=== PATIENT | female | born 1945 | race Caucasian/White ===

== ENCOUNTER → 2016-12-01 | Outpatient (CLI) | payer MEDICARE, OTHER ==
[2016-07-01 18:46] VITALS: BP 159/97
[~2016-12-01] MED LIST: CALCIUM500 M1 PO; CIPRO500 M1 PO; FLEXERIL 1010 MG/TAB PO; FOSAMAX 70MG TA70 MG PO; GLUCOSAMIN-CHO1 EACH PO; HCTZ 25MG25 MG PO; KLOR-CON 1010 MEQ PO; LISINOPRIL20 MG PO; METOPROLOL SUCC50 M1 PO; PHARMASSURE FIS1 SGL PO; TRIAMTERENE AND1 TAB PO
== END ==
LOC: LAB 09:18
DX: D50.9 Iron deficiency anemia, unspecified (principal)

== ENCOUNTER → 2016-12-04 | Outpatient (CLI) | payer MEDICARE, OTHER ==
[2016-07-01 18:46] VITALS: BP 159/97
== END ==
LOC: LAB 13:19
DX: D50.9 Iron deficiency anemia, unspecified (principal)

== ENCOUNTER → 2016-12-05 | Outpatient (CLI) | payer MEDICARE, OTHER ==
[2016-07-01 18:46] VITALS: BP 159/97
== END ==
LOC: LAB 13:10
DX: D50.9 Iron deficiency anemia, unspecified (principal)

== ENCOUNTER → 2016-12-30 | Outpatient (CLI) | payer MEDICARE, OTHER ==
[2016-07-01 18:46] VITALS: BP 159/97
== END ==
LOC: LAB 14:34
DX: D50.8 Other iron deficiency anemias (principal); R53.81 Other malaise

== ENCOUNTER → 2017-01-05 | Outpatient (CLI) | payer MEDICARE, OTHER ==
[2016-07-01 18:46] VITALS: BP 159/97
== END ==
LOC: VAS 17:24
DX: R01.1 Cardiac murmur, unspecified (principal); I34.0 Nonrheumatic mitral (valve) insufficiency

== ENCOUNTER → 2017-05-29 | Outpatient (CLI) | payer MEDICARE, OTHER ==
[2016-07-01 18:46] VITALS: BP 159/97
== END ==
LOC: LAB 09:47
DX: C50.919 Malignant neoplasm of unspecified site of unspecified female breast (principal)

== ENCOUNTER → 2018-01-04 | Outpatient (CLI) | payer MEDICARE, OTHER ==
[2016-07-01 18:46] VITALS: BP 159/97
[2018-01-04 09:05] LABS: HEMATOCRIT 39.3 % (37.0-47.0); MEAN CELL VOLUME 85 fl (78-100); MEAN CORPUSCULAR HEMOGLOBIN 26 pg (27-31); MEAN CORPUSCULAR HGB CONC 31 g/dL (33-37); MEAN PLATELET VOLUME 10.3 fl (7.4-10.4); PLATELET COUNT 246 K/mm3 (130-400); RED CELL DISTRIBUTION WIDTH 14.9 % (11.5-14.5); WHITE BLOOD COUNT 7.7 K/mm3 (4.8-10.8)
[2018-01-04 09:52] LABS: LYMPHOCYTE 8 % (20-51); MONOCYTE 9 % (3-10); NEUTROPHILS 77 % (42-75)
== END ==
LOC: LAB 08:31
PROVIDERS: Nurse Practitioner Family
DX: Z00.00 Encounter for general adult medical examination without abnormal findings (principal); E78.2 Mixed hyperlipidemia; I10 Essential (primary) hypertension; D64.9 Anemia, unspecified; D05.10 Intraductal carcinoma in situ of unspecified breast

== ENCOUNTER → 2018-02-09 | Outpatient (CLI) | payer MEDICARE, OTHER ==
[2016-07-01 18:46] VITALS: BP 159/97
== END ==
LOC: LAB 10:30
DX: N39.0 Urinary tract infection, site not specified (principal)

== ENCOUNTER → 2018-04-28 | Outpatient (CLI) | payer MEDICARE, OTHER ==
[2016-07-01 18:46] VITALS: BP 159/97
[2018-04-28 17:30] LABS: URINE APPEARANCE HAZY; URINE BILIRUBIN NEGATIVE (NEGATIVE); URINE BLOOD NEGATIVE (NEGATIVE); URINE COLOR YELLOW; URINE GLUCOSE NEGATIVE (NEGATIVE); URINE KETONE NEGATIVE (NEGATIVE); URINE NITRATE NEGATIVE (NEGATIVE); URINE PROTEIN(semi-quant) NEGATIVE (NEGATIVE); URINE UROBILINOGEN NORMAL (NORMAL)
[2018-04-28 17:31] LABS: URINE LEUKOCYTE ESTERASE 1+ (NEGATIVE)
== END ==
LOC: LAB 14:56
PROVIDERS: Family Medicine
DX: R19.7 Diarrhea, unspecified (principal)

== ENCOUNTER → 2018-05-13 | Outpatient (CLI) | payer MEDICARE, OTHER ==
[2016-07-01 18:46] VITALS: BP 159/97
[2018-05-13 14:46] LABS: HEMATOCRIT 38.9 % (37.0-47.0); HEMOGLOBIN 12.4 g/dL (12.5-16.0); MEAN CELL VOLUME 86 fl (78-100); MEAN CORPUSCULAR HEMOGLOBIN 28 pg (27-31); MEAN CORPUSCULAR HGB CONC 32 g/dL (33-37); MEAN PLATELET VOLUME 10.1 fl (7.4-10.4); PLATELET COUNT 256 K/mm3 (130-400); RED BLOOD COUNT 4.51 M/mm3 (4.10-5.30); RED CELL DISTRIBUTION WIDTH 14.5 % (11.5-14.5); WHITE BLOOD COUNT 8.9 K/mm3 (4.8-10.8)
[2018-05-13 15:08] LABS: ALBUMIN 3.7 g/dL (3.5-5.0); POTASSIUM 3.7 mmol/L (3.6-5.0); TOTAL BILIRUBIN 0.3 mg/dL (0.2-1.3); TOTAL PROTEIN 6.6 g/dL (6.3-8.2)
[2018-05-13 15:33] LABS: LYMPHOCYTE 15 % (20-51); MONOCYTE 9 % (3-10); NEUTROPHILS 74 % (42-75)
[2018-05-13 15:34] LABS: POLYCHROMASIA 1+
== END ==
LOC: RAD 14:25
PROVIDERS: Nurse Practitioner Family
DX: R19.7 Diarrhea, unspecified (principal)

== ENCOUNTER → 2019-01-12 | Outpatient (CLI) | payer MEDICARE, OTHER ==
[2016-07-01 18:46] VITALS: BP 159/97
[2019-01-12 12:06] LABS: HEMATOCRIT 42.4 % (37.0-47.0); HEMOGLOBIN 12.8 g/dL (12.5-16.0); MEAN CELL VOLUME 85 fl (78-100); MEAN CORPUSCULAR HEMOGLOBIN 26 pg (27-31); MEAN CORPUSCULAR HGB CONC 30 g/dL (33-37); MEAN PLATELET VOLUME 10.2 fl (7.4-10.4); PLATELET COUNT 240 K/mm3 (130-400); RED BLOOD COUNT 5.01 M/mm3 (4.10-5.30); RED CELL DISTRIBUTION WIDTH 14.6 % (11.5-14.5); WHITE BLOOD COUNT 6.9 K/mm3 (4.8-10.8)
[2019-01-12 12:40] LABS: LYMPHOCYTE 13 % (20-51); MONOCYTE 9 % (3-10); NEUTROPHILS 74 % (42-75)
== END ==
LOC: LAB 11:54
PROVIDERS: Family Medicine
DX: E78.5 Hyperlipidemia, unspecified (principal); E55.9 Vitamin D deficiency, unspecified; R53.83 Other fatigue

== ENCOUNTER → 2019-01-18 | Outpatient (CLI) | payer MEDICARE, OTHER ==
[2016-07-01 18:46] VITALS: BP 159/97
== END ==
LOC: RAD 14:12 → MAMMO 14:30
DX: Z13.820 Encounter for screening for osteoporosis (principal); M81.0 Age-related osteoporosis without current pathological fracture; M85.80 Other specified disorders of bone density and structure, unspecified site

== ENCOUNTER → 2019-06-09 | Outpatient (CLI) | payer MEDICARE, OTHER ==
[2016-07-01 18:46] VITALS: BP 159/97
[2019-06-09 15:08] LABS: PH-URINE 5.5 (5.0 - 8.0); URINE APPEARANCE HAZY; URINE BILIRUBIN NEGATIVE (NEGATIVE); URINE BLOOD NEGATIVE (NEGATIVE); URINE COLOR YELLOW; URINE GLUCOSE NEGATIVE (NEGATIVE); URINE KETONE NEGATIVE (NEGATIVE); URINE LEUKOCYTE ESTERASE 1+ (NEGATIVE); URINE NITRATE POSITIVE (NEGATIVE); URINE PROTEIN(semi-quant) TRACE mg/dL (NEGATIVE); URINE UROBILINOGEN NORMAL (NORMAL)
[2019-06-09 15:09] LABS: URINE MUCUS PRESENT (NOT PRESENT)
== END ==
LOC: LAB 14:45
PROVIDERS: Urology
DX: R39.15 Urgency of urination (principal)

== ENCOUNTER → 2019-07-28 | Outpatient (CLI) | payer MEDICARE, OTHER ==
[2016-07-01 18:46] VITALS: BP 159/97
== END ==
LOC: VAS 16:23 → RAD 17:00
DX: J06.9 Acute upper respiratory infection, unspecified (principal); R01.1 Cardiac murmur, unspecified

== ENCOUNTER → 2019-10-28 | Outpatient (CLI) | payer MEDICARE, OTHER ==
[2016-07-01 18:46] VITALS: BP 159/97
== END ==
LOC: CARDREHAB 09:54 → CARDLAB 16:01
DX: R42 Dizziness and giddiness (principal); R94.31 Abnormal electrocardiogram [ECG] [EKG]
CPT/HCPCS: A9500

== ENCOUNTER → 2019-12-26 | Outpatient (CLI) | payer MEDICARE, OTHER ==
[2016-07-01 18:46] VITALS: BP 159/97
[2019-12-26 13:23] LABS: ALBUMIN 3.9 g/dL (3.4-4.8); POTASSIUM 3.9 mmol/L (3.5-5.1)
[2019-12-26 13:24] LABS: CALCIUM 9.4 mg/dL (8.3-10.5)
[2019-12-26 13:27] LABS: TOTAL BILIRUBIN 0.3 mg/dL (0.2-1.2)
== END ==
LOC: LAB 12:58
PROVIDERS: Internal Medicine Medical Oncology
DX: D05.92 Unspecified type of carcinoma in situ of left breast (principal)

== ENCOUNTER → 2020-04-23 | Outpatient (CLI) | payer MEDICARE, OTHER ==
[2016-07-01 18:46] VITALS: BP 159/97
== END ==
LOC: LAB 09:48
DX: E78.5 Hyperlipidemia, unspecified (principal)

== ENCOUNTER → 2020-06-18 | Outpatient (CLI) | payer MEDICARE, OTHER ==
[2016-07-01 18:46] VITALS: BP 159/97
[2020-06-18 11:58] LABS: URINE APPEARANCE HAZY; URINE BILIRUBIN NEGATIVE (NEGATIVE); URINE BLOOD NEGATIVE (NEGATIVE); URINE COLOR YELLOW; URINE GLUCOSE NEGATIVE (NEGATIVE); URINE KETONE NEGATIVE (NEGATIVE); URINE LEUKOCYTE ESTERASE TRACE (NEGATIVE); URINE MUCUS PRESENT (NOT PRESENT); URINE NITRATE NEGATIVE (NEGATIVE); URINE PROTEIN(semi-quant) 1+ mg/dL (NEGATIVE); URINE UROBILINOGEN NORMAL (NORMAL)
[2020-06-18 15:25] LABS: URINE APPEARANCE CLEAR; URINE COLOR YELLOW
[2020-06-18 15:28] LABS: URINE BILIRUBIN NEGATIVE (NEGATIVE); URINE BLOOD NEGATIVE (NEGATIVE); URINE GLUCOSE NEGATIVE (NEGATIVE); URINE KETONE NEGATIVE (NEGATIVE); URINE LEUKOCYTE ESTERASE NEGATIVE (NEGATIVE); URINE NITRATE NEGATIVE (NEGATIVE); URINE PROTEIN(semi-quant) TRACE mg/dL (NEGATIVE); URINE UROBILINOGEN NORMAL (NORMAL); URINE WBC 0-1 /hpf (0-3)
== END ==
LOC: LAB 11:24
DX: N39.0 Urinary tract infection, site not specified (principal)

== ENCOUNTER → 2020-09-11 | Outpatient (CLI) | payer MEDICARE, OTHER ==
[2016-07-01 18:46] VITALS: BP 159/97
== END ==
LOC: LAB 09:22
DX: E78.5 Hyperlipidemia, unspecified (principal)

== ENCOUNTER → 2021-01-07 | Outpatient (CLI) | payer MEDICARE, OTHER ==
[2016-07-01 18:46] VITALS: BP 159/97
== END ==
LOC: LAB 10:14
DX: N64.9 Disorder of breast, unspecified (principal)

== ENCOUNTER → 2021-03-15 | Outpatient (CLI) | payer MEDICARE, OTHER | LOC: LAB 13:38 | DX: E78.5 Hyperlipidemia, unspecified (principal) ==

== ENCOUNTER → 2021-08-06 | Outpatient (CLI) | payer MEDICARE, OTHER ==
[2021-08-06 10:37] LABS: BASO # 0.05 K/mm3 (0.02-0.10); EOS % 2.4 % (1.0-5.0); HEMOGLOBIN 12.9 g/dL (12.5-16.0); MEAN CELL VOLUME 89 fl (78-100); MEAN CORPUSCULAR HEMOGLOBIN 27 pg (27-31); MEAN CORPUSCULAR HGB CONC 31 g/dL (33-37); MEAN PLATELET VOLUME 9.6 fl (7.4-10.4); MONO # 0.77 K/mm3 (0.20-0.80); NEU # 6.71 K/mm3 (1.40-6.50); PLATELET COUNT 247 K/mm3 (130-400); RED BLOOD COUNT 4.73 M/mm3 (4.10-5.30); RED CELL DISTRIBUTION WIDTH 13.9 % (11.5-14.5); WHITE BLOOD COUNT 8.4 K/mm3 (4.8-10.8)
[2021-08-06 10:48] LABS: ALBUMIN 3.9 g/dL (3.4-4.8); POTASSIUM 3.5 mmol/L (3.5-5.1)
[2021-08-06 10:49] LABS: CALCIUM 10.2 mg/dL (8.3-10.5)
[2021-08-06 10:51] LABS: TOTAL PROTEIN 6.8 g/dL (6.2-8.1)
[2021-08-06 10:52] LABS: TOTAL BILIRUBIN 0.3 mg/dL (0.2-1.2)
== END ==
LOC: LAB 10:21
PROVIDERS: Family Medicine
DX: Z00.00 Encounter for general adult medical examination without abnormal findings (principal); E78.5 Hyperlipidemia, unspecified; E55.9 Vitamin D deficiency, unspecified

== ENCOUNTER → 2021-08-26 | Outpatient (CLI) | payer MEDICARE, OTHER | LOC: LAB 14:53 | DX: Z20.822 Contact with and (suspected) exposure to COVID-19 (principal) ==

== ENCOUNTER 2022-02-03 23:28 | Emergency (ER) | payer MEDICARE, OTHER ==
[~2022-02-03] VITALS: Ht 142.2 cm; Wt 95.5 kg
[2022-02-03] MEDS ORDERED: ZESTORETIC 25 M1 TAB PO (23:38)
[2022-02-03] MEDS ORDERED: WOMEN'S DAILY F1 TAB PO (23:40)
[2022-02-03] MEDS ORDERED: CRANBERRY400 M2 PO (23:46)
[2022-02-04 01:04] VITALS: BP 166/73
== END 2022-02-04 01:04 | disposition home or self-care (01) ==
LOC: ED 23:28
DX: I83.891 Varicose veins of right lower extremity with other complications (principal); E66.9 Obesity, unspecified

== ENCOUNTER → 2023-08-20 | Outpatient (CLI) | payer MEDICARE, OTHER ==
[~2023-08-20] MED LIST changes: +CRANBERRY400 M2 PO; +WOMEN'S DAILY F1 TAB PO; +ZESTORETIC 25 M1 TAB PO
== END ==
LOC: LAB 13:58
DX: Z00.00 Encounter for general adult medical examination without abnormal findings (principal); E55.9 Vitamin D deficiency, unspecified

== ENCOUNTER → 2023-08-25 | Outpatient (CLI) | payer MEDICARE, OTHER | LOC: RAD 12:48 → MAMMO 13:00 | DX: M81.0 Age-related osteoporosis without current pathological fracture (principal) ==

== ENCOUNTER 2023-09-14 13:28 | Outpatient (RCR) | payer MEDICARE, OTHER | END 2023-09-23 | disposition home or self-care (01) | LOC: PT | DX: R26.89 Other abnormalities of gait and mobility (principal) ==

== ENCOUNTER 2023-09-24 08:00 | Outpatient (RCR) | payer MEDICARE, OTHER | END 2023-10-22 | disposition home or self-care (01) | LOC: PT | DX: R26.89 Other abnormalities of gait and mobility (principal) ==

== ENCOUNTER → 2024-06-09 | Outpatient (CLI) | payer MEDICARE, OTHER ==
[2024-06-09 13:19] LABS: BASO # 0.03 K/mm3 (0.02-0.10); EOS # 0.19 K/mm3 (0.04-0.40); HEMATOCRIT 41.9 % (37.0-47.0); HEMOGLOBIN 13.3 g/dL (12.5-16.0); LYMPH# 0.86 K/mm3 (1.50-4.00); MEAN CELL VOLUME 89 fl (78-100); MEAN CORPUSCULAR HEMOGLOBIN 28 pg (27-31); MEAN CORPUSCULAR HGB CONC 32 g/dL (33-37); MEAN PLATELET VOLUME 9.6 fl (7.4-10.4); MONO # 0.65 K/mm3 (0.20-0.80); NEU # 7.85 K/mm3 (1.40-6.50); PLATELET COUNT 278 K/mm3 (130-400); RED BLOOD COUNT 4.73 M/mm3 (4.10-5.30); RED CELL DISTRIBUTION WIDTH 13.7 % (11.5-14.5); WHITE BLOOD COUNT 9.6 K/mm3 (4.8-10.8)
[2024-06-09 13:26] LABS: ALBUMIN 4.3 g/dL (3.4-4.8)
[2024-06-09 13:27] LABS: CALCIUM 10.4 mg/dL (8.3-10.5)
[2024-06-09 13:29] LABS: TOTAL PROTEIN 7.5 g/dL (6.2-8.1)
[2024-06-09 13:30] LABS: TOTAL BILIRUBIN 0.4 mg/dL (0.2-1.2)
[2024-06-09 13:36] LABS: URINE APPEARANCE CLOUDY (CLEAR); URINE COLOR YELLOW (YELLOW)
[2024-06-09 13:37] LABS: URINE BILIRUBIN NEGATIVE (NEGATIVE); URINE BLOOD NEGATIVE (NEGATIVE); URINE GLUCOSE NEGATIVE (NEGATIVE); URINE KETONE NEGATIVE (NEGATIVE); URINE LEUKOCYTE ESTERASE 2+ (NEGATIVE); URINE NITRATE POSITIVE (NEGATIVE); URINE PROTEIN(semi-quant) NEGATIVE (NEGATIVE); URINE WBC 31-50 /hpf (0-3)
== END ==
LOC: LAB 13:00
PROVIDERS: Family Medicine
DX: I10 Essential (primary) hypertension (principal); N39.0 Urinary tract infection, site not specified; R73.9 Hyperglycemia, unspecified; R51.9 Headache, unspecified